=== PATIENT | male | born 1960 | race Caucasian/White ===

== ENCOUNTER 2018-08-04 13:58 | Inpatient (IN) | END 2018-08-11 18:55 | disposition home or self-care (01) | DRG 727 ==

== ENCOUNTER 2018-09-24 20:22 | Emergency (ER) | END 2018-09-25 00:24 | disposition home or self-care (01) ==

== ENCOUNTER 2018-12-29 12:41 | Emergency (ER) | payer OTHER ==
[~2018-12-29] VITALS: Ht 170.2 cm; Wt 80.0 kg
[~2018-12-29 12:41] MED LIST changes: -ACET-141 PO; -SOD CHLORIDE 0.9% 1,000 ML IV SCH; -TAMS0.4C2 PO
[2018-12-29 12:46] VITALS: Ht 170.2 cm; Wt 80.0 kg
--- NOTE | 2018-12-29 13:05 | ERD ---
ER Documentation Chief Complaint Chief Complaint SENT FROM SAME DAY SURGERY FOR EVAL OF HTN LOW HR. HPI 58-year-old man referred here from same day surgery for blood pressure control, he has a long history of hypertension and was due for a kidney biopsy today. He denies chest pain or shortness of breath, no headache or blurry vision, denies other symptoms. ROS All systems reviewed and are negative except as per history of present illness. Medications Home Meds Reported Medications Acetaminophen* (Acetaminophen*) 500 MG Extra Strength Tablet, 500 MG PO Q4H PRN for PAIN AND OR ELEVATED TEMP, TAB 12/29/18 Tamsulosin Hcl* (Tamsulosin Hcl*) 0.4 Mg Cap.er.24h, 0.4 MG PO DAILY, CAP 12/29/18 Metoprolol Tartrate* (Lopressor*) 50 Mg Tab, 50 MG PO TID, #60 TAB 12/29/18 Hydrochlorothiazide* (Hydrochlorothiazide*) 50 Mg Tab, 50 MG PO TID, #60 TAB 12/29/18 Lisinopril* (Lisinopril*) 5 Mg Tablet, 5 MG PO BID, #30 TAB 12/29/18 Discontinued Scripts Ibuprofen* (Motrin*) 600 Mg Tab, 600 MG PO Q6H PRN for PAIN AND OR ELEVATED TEMP, #30 TAB Prov:MISAEL WARD MD 09/25/18 Doxycycline* (Vibramycin*) 100 Mg Tab, 100 MG PO BID for 10 Days, #10 TAB Prov:ALE ROGERS MD 08/11/18 Allergies Allergies: Coded Allergies: No Known Allergy (Unverified , 12/29/18) PMhx/Soc History of epididymitis, chronic kidney disease, hypertension, alcoholism, obesity History of Surgery: Yes (RLE SX) Anesthesia Reaction: No Hx Neurological Disorder: No Hx Respiratory Disorders: No Hx Cardiac Disorders: Yes (HTN) Hx Psychiatric Problems: No Hx Miscellaneous Medical Probl: No Hx Alcohol Use: No Hx Substance Use: No Hx Tobacco Use: Yes FmHx Family History: No diabetes Physical Exam Vitals Vital Signs Date Temp Pulse Resp B/P (MAP) Pulse Ox O2 O2 Flow FiO2 Time Delivery Rate 12/29/18 64 20 183/81 99 Room Air 13:47 (115) 12/29/18 96.3 52 16 212/96 99 12:46 (134) Physical Exam Const: No acute distress Head: Atraumatic Eyes: Normal Conjunctiva ENT: Normal External Ears, Nose and Mouth. Neck: Full range of motion. No meningismus. Resp: Clear to auscultation bilaterally Cardio: Regular rate and rhythm, no murmurs Abd: Soft, non tender, non distended. Normal bowel sounds Skin: No petechiae or rashes Back: No midline or flank tenderness Ext: No cyanosis, or edema Neur: Awake and alert x3, no focal deficits or facial asymmetry Psych: Normal Mood and Affect Results 24 hrs Current Medications Medications Dose Sig/Ashley Start Time Status Last (Trade) Ordered Route PRN Stop Time Admin Dose Reason Admin Hydralazine 20 mg ONCE ONCE 12/29/18 DC 12/29/18 HCl IV 13:30 13:13 (Apresoline) 12/29/18 13:31 Procedures/MDM IV line was established patient was placed on cardiac cath lab manager rhythm strip revealed a sinus bradycardia at about 50 bpm with upright P and T waves. Patient was afebrile Patient was hypertensive and bradycardic here in the emergency department I administered hydralazine 20 mg IV x1. His systolic blood pressure fell over 30 points and pulse at this time is 66 bpm and normal. He remains asymptomatic and I have no indication for any further intervention, imaging, or admission. Patient will be discharged from the emergency department and will follow up with his PMD to reschedule kidney biopsy. Patient feels much better at this time, and vital signs are normal, symptoms have improved. I did give strict instructions to return to the ED if symptoms continue or worsen, patient will otherwise follow-up with primary care physician. Patient understood instructions and agreed to plan. Disclaimer: Inadvertent spelling and grammatical errors are likely due to EHR/dictation software use and do not reflect on the overall quality of patient care. Also, please note that the electronic time recorded on this note does not necessarily reflect the actual time of the patient encounter. Departure Diagnosis: Primary Impression: Hypertension Hypertension type: essential hypertension Qualified Codes: I10 - Essential (primary) hypertension Condition: ANAND Moreau MD Dec 29, 2018 13:05
[2018-12-29] MEDS ORDERED: TAMS0.4C2 PO (13:22)
[2018-12-29] MEDS ORDERED: ACET-141 PO (13:22)
[2018-12-29] MEDS ORDERED: hydrALAzine 20 MG INJ IV ONE (13:30)
[2018-12-29 13:47] VITALS: BP 183/81; PULSE 64; RESP 20
== END 2018-12-29 14:39 | disposition home or self-care (01) ==
LOC: E/R 12:41
DX: I12.9 Hypertensive chronic kidney disease with stage 1 through stage 4 chronic kidney disease, or unspecified chronic kidney disease (principal); R40.2142 Coma scale, eyes open, spontaneous, at arrival to emergency department; R40.2362 Coma scale, best motor response, obeys commands, at arrival to emergency department; R40.2252 Coma scale, best verbal response, oriented, at arrival to emergency department; N18.9 Chronic kidney disease, unspecified; E66.9 Obesity, unspecified; Z87.891 Personal history of nicotine dependence; Z68.27 Body mass index [BMI] 27.0-27.9, adult
CPT/HCPCS: 96374; J0360; Z7502; Z7610

== ENCOUNTER → 2018-12-29 | Day surgery (SDC) | payer OTHER ==
[~2018-12-29] VITALS: Ht 170.2 cm; Wt 96.6 kg
[~2018-12-29] MED LIST: ACET-141 PO; DOXY100T2 PO; HYDR50TA3 PO; IBUP-1542 PO; LISI-313 PO; METO-429 PO; SOD CHLORIDE 0.9% 1,000 ML IV SCH; TAMS0.4C2 PO
--- NOTE | 2018-12-29 07:51 | HPN ---
Date/Time of Note Date/Time of Note DATE: 12/29/18 TIME: 07:51 Interval H&P Admission Note Pt. seen H&P reviewed: No system changes MARTINEZ WILLIS MD Dec 29, 2018 07:51
[2018-12-29 07:58] VITALS: BP 199/93; PULSE 45; RESP 18
[2018-12-29 09:15] VITALS: BP 199/92; PULSE 48
[2018-12-29 09:21] VITALS: Ht 170.2 cm; Wt 96.6 kg
[2018-12-29 11:50] VITALS: BP 248/111; PULSE 50
== END | disposition home or self-care (01) ==
LOC: SDS 07:41
PROVIDERS: ATTEND Internal Medicine Nephrology
DX: I12.9 Hypertensive chronic kidney disease with stage 1 through stage 4 chronic kidney disease, or unspecified chronic kidney disease (principal); N18.9 Chronic kidney disease, unspecified; Z53.8 Procedure and treatment not carried out for other reasons

== ENCOUNTER 2019-01-09 10:58 | Inpatient (IN) | payer OTHER ==
[~2019-01-09] VITALS: Ht 170.2 cm; Wt 93.1 kg
[~2019-01-09 10:58] MED LIST changes: +ACET-141 PO; -DOXY100T2 PO; -IBUP-1542 PO; +TAMS0.4C2 PO
--- NOTE | 2019-01-09 11:12 | ERD ---
ER Documentation Chief Complaint Chief Complaint Sent from MD for adm for renal bx HPI The patient is a 58-year-old male, presenting to the ER because he needs admission for renal biopsy due to persistent proteinuria according to his rda Dr Huitron, who sent him to the ER. He complains of intermittent dizziness for the last 3 weeks, denies syncope, near syncope, neck pain, chest pain, dyspnea, abdominal pain, vomiting, dizzy, diarrhea. He smokes, denies drinking Past medical history: Hypertension, BPH, chronic kidney disease, chronic bilateral leg edema Past surgical history: None ROS All systems reviewed and are negative except as per history of present illness. Medications Home Meds Reported Medications Acetaminophen* (Acetaminophen*) 500 MG Extra Strength Tablet, 500 MG PO Q4H PRN for PAIN AND OR ELEVATED TEMP, TAB 12/29/18 Tamsulosin Hcl* (Tamsulosin Hcl*) 0.4 Mg Cap.er.24h, 0.4 MG PO DAILY, CAP 12/29/18 Metoprolol Tartrate* (Lopressor*) 50 Mg Tab, 50 MG PO TID, #60 TAB 12/29/18 Hydrochlorothiazide* (Hydrochlorothiazide*) 50 Mg Tab, 50 MG PO TID, #60 TAB 12/29/18 Lisinopril* (Lisinopril*) 5 Mg Tablet, 5 MG PO BID, #30 TAB 12/29/18 Allergies Allergies: Coded Allergies: No Known Allergy (Unverified , 01/09/19) PMhx/Soc History of Surgery: Yes (RLE SX) Anesthesia Reaction: No Hx Neurological Disorder: No Hx Respiratory Disorders: No Hx Cardiac Disorders: Yes (HTN) Hx Psychiatric Problems: No Hx Miscellaneous Medical Probl: No Hx Alcohol Use: No Hx Substance Use: No Hx Tobacco Use: Yes Physical Exam Vitals Vital Signs Date Temp Pulse Resp B/P (MAP) Pulse Ox O2 O2 Flow FiO2 Time Delivery Rate 01/09/19 98.0 70 20 190/88 98 Room Air 12:30 (122) 01/09/19 97.7 49 20 163/78 98 11:04 (106) Physical Exam Const: No acute distress. Head: Atraumatic. Eyes: Normal Conjunctiva. ENT: Normal External Ears, Nose and Mouth. Neck: Full range of motion. No meningismus. Resp: Clear to auscultation bilaterally. Cardio: Regular bradycardic Abd: Soft, non distended, normal bowel sounds, non tender. Skin: No petechiae or rashes. Back: No midline or flank tenderness. Ext: Mild bilateral leg edema, no calf tenderness Neur: Awake and alert. No focal deficit Psych: Normal Mood and Affect. Result Diagram: 01/09/19 1136 01/09/19 1136 Results 24 hrs Laboratory Tests Test 01/09/19 11:36 White Blood Count 7.9 10^3/ul Red Blood Count 4.30 10^6/ul Hemoglobin 12.7 g/dl Hematocrit 37.9 % Mean Corpuscular Volume 88.1 fl Mean Corpuscular Hemoglobin 29.5 pg Mean Corpuscular Hemoglobin Concent 33.5 g/dl Red Cell Distribution Width 13.0 % Platelet Count 258 10^3/UL Mean Platelet Volume 10.4 fl Immature Granulocytes % 0.500 % Neutrophils % 63.9 % Lymphocytes % 22.0 % Monocytes % 8.4 % Eosinophils % 4.7 % Basophils % 0.5 % Nucleated Red Blood Cells % 0.0 /100WBC Immature Granulocytes # 0.040 10^3/ul Neutrophils # 5.0 10^3/ul Lymphocytes # 1.7 10^3/ul Monocytes # 0.7 10^3/ul Eosinophils # 0.4 10^3/ul Basophils # 0.0 10^3/ul Nucleated Red Blood Cells # 0.0 10^3/ul Urine Color YELLOW Urine Clarity SLIGHTLY CLOUDY Urine pH 5.0 Urine Specific [place] 1.015 Urine Ketones NEGATIVE mg/dL Urine Nitrite NEGATIVE mg/dL Urine Bilirubin NEGATIVE mg/dL Urine Urobilinogen NEGATIVE mg/dL Urine Leukocyte Esterase NEGATIVE [place]/ul Urine Microscopic RBC 5 /HPF Urine Microscopic WBC 4 /HPF Urine Bacteria FEW /HPF Urine Hemoglobin NEGATIVE mg/dL Urine Glucose 1+ mg/dL Urine Total Protein 3+ mg/dl Sodium Level 140 mmol/L Potassium Level 4.6 mmol/L Chloride Level 104 mmol/L Carbon Dioxide Level 27 mmol/L Anion Gap 9 Blood Urea Nitrogen 40 mg/dl Creatinine 1.60 mg/dl Est Glomerular Filtrat Rate mL/min 45 mL/min Glucose Level 107 mg/dl Calcium Level 8.7 mg/dl Total Bilirubin 0.1 mg/dl Direct Bilirubin 0.00 mg/dl Indirect Bilirubin 0.1 mg/dl Aspartate Amino Transf (AST/SGOT) 21 IU/L Alanine Aminotransferase (ALT/SGPT) 11 IU/L Alkaline Phosphatase 85 IU/L Total Protein 7.4 g/dl Albumin 3.8 g/dl Globulin 3.60 g/dl Albumin/Globulin Ratio 1.05 Lipase 135 U/L Procedures/MDM MEDICAL MAKING DECISION: The patient is a 58-year-old male, presenting with acute extra hypertension, acute bradyarrhythmia, persistent proteinuria. He was treated with hydralazine 10 mg IV then later 20 mg IV with good blood pressure response The differential diagnoses considered include but are not limited to central causes such as hypertensive urgency, acute on chronic kidney disease, beta haydee toxicity, sick sinus syndrome, cerebellar infarct, cerebellar hemorrhage, cerebellar tumor, acoustic neuroma, peripheral causes such as benign positional vertigo, labyrinthitis, medication, Meniere's disease. Departure Diagnosis: Primary Impression: Hypertensive urgency Additional Impressions: Bradyarrhythmia Anemia Condition: Stable Comments I discussed the findings with the patient. I discussed the patient with the hospitalist Dr Menon at 12:35 pm . who was made aware of the lab, the treatment, the patient condition. The patient is admitted to Tel Disclaimer: Inadvertent spelling and grammatical errors are likely due to EHR/dictation software use and do not reflect on the overall quality of patient care. Also, please note that the electronic time recorded on this note does not necessarily reflect the actual time of the patient encounter. AMBERLY TRENT MD Jan 09, 2019 11:12
[2019-01-09] MEDS ORDERED: hydrALAzine 20 MG INJ IV ONE ×3 (14:30→15:30)
[2019-01-09] MEDS ORDERED: hydrALAzine 20 MG INJ IV PRN (15:00)
[2019-01-09] MEDS ORDERED: ACETAMINOPHEN 500 MG TAB PO PRN (15:00)
--- NOTE | 2019-01-09 16:08 | HP ---
DATE OF ADMISSION: 01/09/2019 INDICATION FOR ADMISSION: Outpatient referral for control of severely high blood pressure as well as a need for renal biopsy. HISTORY OF PRESENTING COMPLAINT: Mr. Henry is a 58-year-old male with a past medical history of hypertension, chronic kidney disease, whose last hospitalization here was back in August 2018 when he was admitted for management of acute orchitis with hydrocele. He was sent to the Emergency Room today by his competitive intelligence manager for admission for management of severely elevated blood pressures and for need for renal biopsy that has not been able to be done outpatient due to poor blood pressure control. The patient when he arrived in the Emergency Room, blood pressure is as high as 200/95 and his outpatient competitive intelligence manager has been adjusting his medication dosages without significant success in controlling it. He, however, denies headaches. Denies vision changes. Denies neck pain. Denies chest pain, no shortness of breath. Denies abdominal pain, nausea or vomiting. Denies hematochezia or melenic stools. Also does not have significant lower extremity swelling. The patient has chronic yellowing of his skin. He also has some periorbital edema, but he says it is all chronic for him. No other acute findings. PAST MEDICAL HISTORY: 1. High blood pressure. 2. Gout. 3. Chronic kidney disease. 4. Remote alcoholic. 5. Benign prostatic hypertrophy. PAST SURGICAL HISTORY: The patient has had hernia surgery. ALLERGIES: He has no known drug allergies. SOCIAL HISTORY: As mentioned earlier, the patient used to drink heavily, even though he did not consider himself an alcoholic, but he no longer drinks actively. He used to drink a lot of beer while he was working, he continues to smoke 1 cigarette a day and denies illicit drug use, denies marijuana use. FAMILY HISTORY: Noncontributory. REVIEW OF SYSTEMS: A 12-point review of system was done and pertinent findings as noted in HPI. HOME MEDICATIONS: At this time his home medications are not available. He says that we should call his daughter to obtain the list. PHYSICAL EXAMINATION: VITAL SIGNS: Temperature 98.0, pulse 51, respirations 18, blood pressure 200/95, saturations 99% on room air. GENERAL: Very pleasant male who was alert and oriented, cooperative with exam, in no distress. HEENT: Head is normocephalic, but he did have like mentioned earlier, periorbital edema bilaterally, but there was no scleral icterus. There was no conjunctival pallor. Mucous membranes are moist. Posterior pharynx was clear of erythema and exudates. NECK: Supple without adenopathy or JVD. CHEST: Clear to auscultation with good air entry on both sides. CARDIOVASCULAR: Heart sounds are S1 and S2 with no added sounds or murmurs. ABDOMEN: Protuberant but soft, nontender, nondistended. Normoactive bowel sounds. EXTREMITIES: His lower extremity, he does full swelling of the ankles, but does not seem edematous; however, skin was significantly yellowish concerning for possible hyperbilirubinemia. However, his bilirubin levels on the labs were normal. No ulcer, rash or concerning findings noted. LAB VALUES: His creatinine today actually is better than previously; it was 1.6 at the time of discharge last time he went down to 2.18. His liver profile is unremarkable. BUN is 40. Hematology, his hemoglobin 12.7 with normocytic normochromic indices. Urinalysis today continues to show 3+ protein, 1+ glucose and urine clarity was cloudy. IMAGING: Previous imaging reviewed including lower extremity Dopplers that showed no DVT and a renal ultrasound from 07/2018 that was unremarkable. ASSESSMENT: A 58-year-old male who was referred from his outpatient competitive intelligence manager for management of severely elevated blood pressure that is still out of patient's control and need for kidney biopsy that was unable to be done as an outpatient as well due to severely elevated blood pressure that was difficult to control. FINAL DIAGNOSES: 1. Accelerated hypertension. We will start the patient right now on a multidrug regimen and titrate as necessary to obtain optimal control. We will also try to retrieve home medication list from the patient's family. 2. Chronic kidney disease with proteinuria 3+, persistent. 3. Patient needs a renal biopsy when blood pressure is better controlled. 4. Continue to monitor renal function, renally dose all medications and avoid nephrotoxic drugs. 5. History of gout: Stable. 6. Ongoing tobacco use: Status post cessation counseling for at least 3 minutes. We will continue to reinforce. 7. History of benign prostatic hypertrophy. 8. Remote alcohol use. DISPOSITION: The patient will be admitted to telemetry floor and further intervention will depend on clinical course. For prophylaxis, he will be on SCDs. Dictated By: SLADE HARPER MD BA/NTS Conf#: [id number] [facility]#: [id number] MTDD
[2019-01-09 16:21] VITALS: BP 183/84; RESP 18
[2019-01-09 16:23] VITALS: Ht 170.2 cm; Wt 93.1 kg
[2019-01-09 16:25] VITALS: PULSE 74
[2019-01-09] MEDS: NIFEdipine (XL) 60 MG TAB PO SCH ×2 (17:14→22:00)
[2019-01-09 20:00] VITALS: BP 178/81; PULSE 71; PULSE 76; RESP 18
[2019-01-09] MEDS: DOCUSATE SODIUM 100 MG CAP PO SCH (22:00)
[2019-01-09] MEDS: TAMSULOSIN (SR) 0.4 MG CAP PO SCH (22:01)
[2019-01-09] MEDS: ACETAMINOPHEN 325 MG TAB PO PRN (22:01)
[2019-01-10] VITALS (12 sets, daily range): BP systolic 137–193; BP diastolic 70–105; PULSE 63–95; RESP 18–20
[2019-01-10] MEDS ORDERED: morphine 2 MG INJ IV STA (02:32)
[2019-01-10] MEDS: DOCUSATE SODIUM 100 MG CAP PO SCH ×2 (08:04→20:53)
[2019-01-10] MEDS: NIFEdipine (XL) 60 MG TAB PO SCH ×2 (08:04→20:54)
[2019-01-10] MEDS ORDERED: INFLUENZA VIRUS VACCINE 0.5 ML (DISPENSING) IM* ONE (09:00)
--- NOTE | 2019-01-10 11:12 | PN ---
Date/Time of Note Date/Time of Note DATE: 01/10/19 TIME: 11:09 Assessment/Plan VTE Prophylaxis Risk score (from Ns)>0 risk: 3 SCD applied (from Ns): No SCD contraindicated: low risk/ambulating Pharmacological prophylaxis: NA/contraindicated Pharm contraindication: low risk/ambulating Lines/Catheters IV [facility]from [facility] [place] [facility] Urinary Cath still in place: No Assessment/Plan Hospital Course S: no new complaints 0: GENERAL: Very pleasant male who was alert and oriented, cooperative with exam, in no distress. HEENT: Head is normocephalic, but he did have like mentioned earlier, periorbital edema bilaterally, but there was no scleral icterus. There was no conjunctival pallor. Mucous membranes are moist. Posterior pharynx was clear of erythema and exudates. NECK: Supple without adenopathy or JVD. CHEST: Clear to auscultation with good air entry on both sides. CARDIOVASCULAR: Heart sounds are S1 and S2 with no added sounds or murmurs. ABDOMEN: Protuberant but soft, nontender, nondistended. Normoactive bowel sounds. EXTREMITIES: His lower extremity, he does full swelling of the ankles, but does not seem edematous; however, skin was significantly yellowish concerning for possible hyperbilirubinemia. However, his bilirubin levels on the labs were normal. No ulcer, rash or concerning findings noted. assessment and plan: 1. Accelerated hypertension: failed outpatient mgt -improved on current regimen -plan for d/c later today if BP further improves, after dosage increase 2. Chronic kidney disease with proteinuria 3+, persistent. -creatinine levels continue to improve -Patient needs a renal biopsy when blood pressure is better controlled. outpatient ? -Continue to monitor renal function, renally dose all medications and avoid nephrotoxic drugs. 3. History of gout: Stable. 4. Ongoing tobacco use: Status post cessation counseling for at least 3 minutes. We will continue to reinforce. 5. History of benign prostatic hypertrophy. 6. Remote alcohol use. Dispo: possible d.c later today Result Diagram: 01/10/19 0504 01/10/19 0503 Results 24hrs Laboratory Tests Test 01/09/19 11:36 01/10/19 05:03 01/10/19 05:04 White Blood Count 7.9 7.7 Red Blood Count 4.30 L 4.23 L Hemoglobin 12.7 L 12.3 L Hematocrit 37.9 L 37.3 L Mean Corpuscular Volume 88.1 88.2 Mean Corpuscular Hemoglobin 29.5 29.1 Mean Corpuscular 33.5 33.0 Hemoglobin Concent Red Cell Distribution Width 13.0 13.2 Platelet Count 258 228 Mean Platelet Volume 10.4 10.5 H Immature Granulocytes % 0.500 H 0.500 H Neutrophils % 63.9 72.9 Lymphocytes % 22.0 16.3 Monocytes % 8.4 7.9 Eosinophils % 4.7 2.1 Basophils % 0.5 0.3 Nucleated Red Blood Cells % 0.0 0.0 Immature Granulocytes # 0.040 H 0.040 H Neutrophils # 5.0 5.6 Lymphocytes # 1.7 1.3 Monocytes # 0.7 0.6 Eosinophils # 0.4 0.2 Basophils # 0.0 0.0 Nucleated Red Blood Cells # 0.0 0.0 Urine Color YELLOW Urine Clarity SLIGHTLY CLOUDY A Urine pH 5.0 Urine Specific [place] 1.015 Urine Ketones NEGATIVE Urine Nitrite NEGATIVE Urine Bilirubin NEGATIVE Urine Urobilinogen NEGATIVE Urine Leukocyte Esterase NEGATIVE Urine Microscopic RBC 5 Urine Microscopic WBC 4 Urine Bacteria FEW A Urine Hemoglobin NEGATIVE Urine Glucose 1+ H Urine Total Protein 3+ H Sodium Level 140 142 Potassium Level 4.6 4.0 Chloride Level 104 108 Carbon Dioxide Level 27 26 Anion Gap 9 8 Blood Urea Nitrogen 40 H 35 H Creatinine 1.60 H 1.56 H Est Glomerular Filtrat 45 L 46 L Rate mL/min Glucose Level 107 106 Calcium Level 8.7 8.8 Total Bilirubin 0.1 L Direct Bilirubin 0.00 Indirect Bilirubin 0.1 Aspartate Amino 21 Transf (AST/SGOT) Alanine 11 L Aminotransferase (ALT/SGPT) Alkaline Phosphatase 85 Total Protein 7.4 Albumin 3.8 Globulin 3.60 H Albumin/Globulin Ratio 1.05 Lipase 135 Phosphorus Level 3.8 Magnesium Level 2.1 Uric Acid 8.2 H Exam/Review of Systems Exam Vitals Vital Signs Date Temp Pulse Resp B/P (MAP) Pulse Ox O2 O2 Flow FiO2 Time Delivery Rate 01/10/19 92 08:01 01/10/19 98.4 20 161/105 98 07:43 (123) 01/09/19 Room Air 16:21 Intake and Output 01/09/19 01/09/19 01/10/19 1414:59 22:59 06:59 IntakeIntake Total 360 ml 250 ml OutputOutput Total 300 ml 1200 ml BalanceBalance 60 ml -950 ml Results Results 24hrs Laboratory Tests Test 01/09/19 11:36 01/10/19 05:03 01/10/19 05:04 White Blood Count 7.9 7.7 Red Blood Count 4.30 L 4.23 L Hemoglobin 12.7 L 12.3 L Hematocrit 37.9 L 37.3 L Mean Corpuscular Volume 88.1 88.2 Mean Corpuscular Hemoglobin 29.5 29.1 Mean Corpuscular 33.5 33.0 Hemoglobin Concent Red Cell Distribution Width 13.0 13.2 Platelet Count 258 228 Mean Platelet Volume 10.4 10.5 H Immature Granulocytes % 0.500 H 0.500 H Neutrophils % 63.9 72.9 Lymphocytes % 22.0 16.3 Monocytes % 8.4 7.9 Eosinophils % 4.7 2.1 Basophils % 0.5 0.3 Nucleated Red Blood Cells % 0.0 0.0 Immature Granulocytes # 0.040 H 0.040 H Neutrophils # 5.0 5.6 Lymphocytes # 1.7 1.3 Monocytes # 0.7 0.6 Eosinophils # 0.4 0.2 Basophils # 0.0 0.0 Nucleated Red Blood Cells # 0.0 0.0 Urine Color YELLOW Urine Clarity SLIGHTLY CLOUDY A Urine pH 5.0 Urine Specific [place] 1.015 Urine Ketones NEGATIVE Urine Nitrite NEGATIVE Urine Bilirubin NEGATIVE Urine Urobilinogen NEGATIVE Urine Leukocyte Esterase NEGATIVE Urine Microscopic RBC 5 Urine Microscopic WBC 4 Urine Bacteria FEW A Urine Hemoglobin NEGATIVE Urine Glucose 1+ H Urine Total Protein 3+ H Sodium Level 140 142 Potassium Level 4.6 4.0 Chloride Level 104 108 Carbon Dioxide Level 27 26 Anion Gap 9 8 Blood Urea Nitrogen 40 H 35 H Creatinine 1.60 H 1.56 H Est Glomerular Filtrat 45 L 46 L Rate mL/min Glucose Level 107 106 Calcium Level 8.7 8.8 Total Bilirubin 0.1 L Direct Bilirubin 0.00 Indirect Bilirubin 0.1 Aspartate Amino 21 Transf (AST/SGOT) Alanine 11 L Aminotransferase (ALT/SGPT) Alkaline Phosphatase 85 Total Protein 7.4 Albumin 3.8 Globulin 3.60 H Albumin/Globulin Ratio 1.05 Lipase 135 Phosphorus Level 3.8 Magnesium Level 2.1 Uric Acid 8.2 H Medications Medication Current Medications Hydralazine HCl (Apresoline) 10 mg Q6H PRN IV sbp>160mmhg Last administered on 01/10/19 00:51; Admin Dose 10 MG; Start 01/09/19 at 15:00 Tamsulosin HCl (Flomax) 0.4 mg QHS PO Last administered on 01/09/19 22:01; Admi n Dose 0.4 MG; Start 01/09/19 at 21:00 Nifedipine (Procardia Xl) 60 mg BID PO Last administered on 01/10/19 08:04; Admin Dose 60 MG; Start 01/09/19 at 15:00 Carvedilol (Coreg) 6.25 mg BID PO Last administered on 01/10/19 08:04; Admin Dose 6.25 MG; Start 01/09/19 at 15:00 Hydralazine HCl (Apresoline) 25 mg TID PO Last administered on 01/10/19 08:05; Admin Dose 25 MG; Start 01/09/19 at 21:00 Acetaminophen (Tylenol Tab) 650 mg Q6H PRN PO MILD PAIN(1-3)OR ELEVATED TEMP Last administered on 01/09/19 22:01; Admin Dose 650 MG; Start 01/09/19 at 15:30 Docusate Sodium (Colace) 100 mg BID PO Last administered on 01/10/19 08:04; Admin Dose 100 MG; Start 01/09/19 at 21:00 SLADE HARPER Jan 10, 2019 11:12
--- NOTE | 2019-01-10 15:07 | QN ---
Documentation Comment seen and examined renal biopsy in am HARMONY REYES MD Jan 10, 2019 15:07
--- NOTE | 2019-01-10 16:09 | CONS ---
DATE OF ADMISSION: 01/09/2019 DATE OF CONSULTATION: TYPE OF CONSULTATION: Renal. REASON FOR CONSULTATION: Renal biopsy. HISTORY OF PRESENTING ILLNESS: This is a 58-year-old male with a past medical history of hypertensio n, CKD stage III, history of acute orchitis, hydrocele, who had been seeing me as an outpatient for h ypertension control and also for proteinuria. The patient had been seen in the clinic and was noted to have a persistent swelling of the left leg. The patient had UA that had shown 3+ proteinuria, UPC of greater than 3 grams. The paraprotein workup had been negative so far. The patient was schedule d to come for a renal biopsy which he came last week; however blood pressures systolic over 200 and w as seen in my clinic again and was sent in a referral for inpatient renal biopsy. The patient was ad mitted yesterday and currently blood pressure had been controlled. The swelling of the left lower ex tremity has improved. He also has some periorbital edema. PAST MEDICAL HISTORY: 1. Hypertension. 2. Gout. 3. CKD stage III. 4. History of alcohol. 5. BPH. 6. History of hematuria. ALLERGIES: NO KNOWN DRUG ALLERGIES. SOCIAL HISTORY: Used to drink heavily, even though did not consider as an alcoholic. He used to smo ke 1 cigarette per day. Denies any illicit drug use. FAMILY HISTORY: Noncontributory. REVIEW OF SYSTEMS: The patient denies any headache, any blurry vision, any chest pain, any shortness of breath. The patient was having lower extremity edema which was improved. Denies any hematemesis , any melena or any bright blood per rectum. PHYSICAL EXAMINATION: VITAL SIGNS: Temperature 98.0, pulse 81, respirations 18, initial blood pressure was 200/95; current ly blood pressure is 137/71. GENERAL: The patient is awake, alert, oriented, does not appear to be in any acute distress. NECK: Supple. No JVD. HEART: Regular rate and rhythm. LUNGS: Clear to auscultation bilaterally. ABDOMEN: Soft, nontender, nondistended, positive normoactive bowel sounds. EXTREMITIES: Swelling of the ankles. LABORATORY DATA: Sodium 142, potassium 4.0, chloride 108, bicarb 26. White count of 7.7, hemoglobin 12.3, platelet count 228. Coags are pending. MICROBIOLOGY: UA still shows 3+ proteinuria. ASSESSMENT AND PLAN: A 58-year-old male admitted for: 1. Proteinuria, UPC greater than 3 grams, questionable focal segmental glomerulosclerosis/minimal ch jennifer disease/membranous. SPEP, UPEP had been negative as an outpatient. The patient also had uncont rolled hypertension that could have also caused proteinuria. 2. Chronic kidney disease stage III, fairly controlled. 3. Hypertension, uncontrolled. 4. Gout. 5. Vitamin D deficiency. 6. History of alcohol use. 7. History of benign prostatic hypertrophy. PLAN: At this period of time, the patient is admitted to [facility]. The patient is started on hydralazin e 50 t.i.d., nifedipine 60 b.i.d., Coreg 6.25 b.i.d. We will order coags. The patient will be alden nued on rest of the home medications. The patient will likely receive kidney biopsy in-house. I theo ponce to Dr. Ly. Dictated By: HARMONY MARTIN/VIKKI Conf#: [id number] DID#: [id number] CC: SLADE HARPER MD;*EndCC*
[2019-01-10] MEDS: ACETAMINOPHEN 325 MG TAB PO PRN (20:53)
[2019-01-10] MEDS: TAMSULOSIN (SR) 0.4 MG CAP PO SCH (20:55)
[2019-01-11] VITALS (14 sets, daily range): BP systolic 135–159; BP diastolic 72–78; PULSE 56–78; RESP 17–24
--- NOTE | 2019-01-11 06:51 | PN ---
Date/Time of Note Date/Time of Note DATE: 01/11/19 TIME: 06:49 Assessment/Plan VTE Prophylaxis Risk score (from Nsg)>0 risk: 4 Pharmacological prophylaxis: heparin Lines/Catheters IV Catheter Type (from Nrs): Saline Lock Urinary Cath still in place: No Assessment/Plan Hospital Course S: no new complaints, NPO for biopsy today 0: GENERAL: Very pleasant male who was alert and oriented, cooperative with exam, in no distress. HEENT: Head is normocephalic, but he did have like mentioned earlier, periorbital edema bilaterally, but there was no scleral icterus. There was no conjunctival pallor. Mucous membranes are moist. Posterior pharynx was clear of erythema and exudates. NECK: Supple without adenopathy or JVD. CHEST: Clear to auscultation with good air entry on both sides. CARDIOVASCULAR: Heart sounds are S1 and S2 with no added sounds or murmurs. ABDOMEN: Protuberant but soft, nontender, nondistended. Normoactive bowel sounds. EXTREMITIES: His lower extremity, he does full swelling of the ankles, but does not seem edematous; however, skin was significantly yellowish concerning for possible hyperbilirubinemia. However, his bilirubin levels on the labs were normal. No ulcer, rash or concerning findings noted. assessment and plan: 1. Accelerated hypertension: failed outpatient mgt -improved on current regimen -has room for further improvement, however in view of #3, patient will benefit from ACEi or ARB but will defer to renal as to when to start this -will give one dose of clonidine now to improve levels 2. Chronic kidney disease with proteinuria 3+, persistent. -creatinine levels continue to improve -Patient needs a renal biopsy, to be done later today -Continue to monitor renal function, renally dose all medications and avoid nephrotoxic drugs. 3. History of gout: Stable. 4. Ongoing tobacco use: Status post cessation counseling for at least 3 minutes. We will continue to reinforce. 5. History of benign prostatic hypertrophy. 6. Remote alcohol use. Dispo: renal biopsy, add acei or arb, then d/c ? Result Diagram: 01/10/19 0504 01/10/19 0503 Results 24hrs Laboratory Tests Test 01/10/19 13:53 01/11/19 05:42 Prothrombin Time 13.4 Prothrombin Time Ratio 1.0 INR International Normalized Ratio 1.01 Activated Partial Thromboplast Time 32.9 White Blood Count Pending Red Blood Count Pending Hemoglobin Pending Hematocrit Pending Mean Corpuscular Volume Pending Mean Corpuscular Hemoglobin Pending Mean Corpuscular Hemoglobin Concent Pending Red Cell Distribution Width Pending Platelet Count Pending Mean Platelet Volume Pending Exam/Review of Systems Exam Vitals Vital Signs Date Temp Pulse Resp B/P (MAP) Pulse Ox O2 O2 Flow FiO2 Time Delivery Rate 01/11/19 97.8 62 17 154/73 93 04:07 (100) 01/09/19 Room Air 16:21 Intake and Output 01/10/19 01/10/19 01/11/19 1515:00 23:00 07:00 IntakeIntake Total 800 ml 300 ml OutputOutput Total 650 ml 850 ml BalanceBalance 150 ml -550 ml Results Results 24hrs Laboratory Tests Test 01/10/19 13:53 01/11/19 05:42 Prothrombin Time 13.4 Prothrombin Time Ratio 1.0 INR International Normalized Ratio 1.01 Activated Partial Thromboplast Time 32.9 White Blood Count Pending Red Blood Count Pending Hemoglobin Pending Hematocrit Pending Mean Corpuscular Volume Pending Mean Corpuscular Hemoglobin Pending Mean Corpuscular Hemoglobin Concent Pending Red Cell Distribution Width Pending Platelet Count Pending Mean Platelet Volume Pending Medications Medication Current Medications Hydralazine HCl (Apresoline) 10 mg Q6H PRN IV sbp>160mmhg Last administered on 01/10/19 00:51; Admin Dose 10 MG; Start 01/09/19 at 15:00 Tamsulosin HCl (Flomax) 0.4 mg QHS PO Last administered on 01/10/19 20:55; Admin Dose 0.4 MG; Start 01/09/19 at 21:00 Nifedipine (Procardia Xl) 60 mg BID PO Last administered on 01/10/19 20:54; Admin Dose 60 MG; Start 01/09/19 at 15:00 Carvedilol (Coreg) 6.25 mg BID PO Last administered on 01/10/19 20:54; Admin Dose 6.25 MG; Start 01/09/19 at 15:00 Acetaminophen (Tylenol Tab) 650 mg Q6H PRN PO MILD PAIN(1-3)OR ELEVATED TEMP Last administered on 01/10/19 20:53; Admin Dose 650 MG; Start 01/09/19 at 15:30 Docusate Sodium (Colace) 100 mg BID PO Last administered on 01/10/19 20:53; Admin Dose 100 MG; Start 01/09/19 at 21:00 Hydralazine HCl (Apresoline) 50 mg TID PO Last administered on 01/10/19 20:55; Admin Dose 50 MG; Start 01/10/19 at 13:00 SLADE HARPER Jan 11, 2019 06:51
[2019-01-11] MEDS: DOCUSATE SODIUM 100 MG CAP PO SCH (08:14)
[2019-01-11] MEDS: NIFEdipine (XL) 60 MG TAB PO SCH (08:14)
--- NOTE | 2019-01-11 10:51 | PREAC ---
Date/Time of Note Date/Time of Note DATE: 01/11/19 TIME: 10:49 Anesthesia Eval and Record Evaluation Time Pre-Procedure Interview DATE: 01/11/19 TIME: 10:49 Age 58 Sex male NPO: 8 hrs Preoperative diagnosis HTN Planned procedure Renal Biopsy Past Medical History Past Medical History: Includes Cardio: HTN Renal: CKD Hepatic: Alcohol abuse Surgery & Anesthesia Issues No known issue Meds Anticoagulation: No Beta Angela within 24 hr: Yes Reason Beta Angela not given: Pt. not on B-Angela Reported Medications Acetaminophen* (Acetaminophen*) 500 MG Extra Strength Tablet, 500 MG PO Q4H PRN for PAIN AND OR ELEVATED TEMP, TAB 12/29/18 Tamsulosin Hcl* (Tamsulosin Hcl*) 0.4 Mg Cap.er.24h, 0.4 MG PO DAILY, CAP 12/29/18 Metoprolol Tartrate* (Lopressor*) 50 Mg Tab, 50 MG PO TID, #60 TAB 12/29/18 Hydrochlorothiazide* (Hydrochlorothiazide*) 50 Mg Tab, 50 MG PO TID, #60 TAB 12/29/18 Lisinopril* (Lisinopril*) 5 Mg Tablet, 5 MG PO BID, #30 TAB 12/29/18 Current Medications Hydralazine HCl (Apresoline) 10 mg Q6H PRN IV sbp>160mmhg Last administered on 01/10/19at 00:51; Admin Dose 10 MG; Start 01/09/19 at 15:00 Tamsulosin HCl (Flomax) 0.4 mg QHS PO Last administered on 01/10/19at 20:55; Admi n Dose 0.4 MG; Start 01/09/19 at 21:00 Nifedipine (Procardia Xl) 60 mg BID PO Last administered on 01/11/19at 08:14; Admin Dose 60 MG; Start 01/09/19 at 15:00 Carvedilol (Coreg) 6.25 mg BID PO Last administered on 01/11/19at 08:13; Admin Dose 6.25 MG; Start 01/09/19 at 15:00 Acetaminophen (Tylenol Tab) 650 mg Q6H PRN PO MILD PAIN(1-3)OR ELEVATED TEMP Last administered on 01/10/19at 20:53; Admin Dose 650 MG; Start 01/09/19 at 15:30 Docusate Sodium (Colace) 100 mg BID PO Last administered on 01/11/19at 08:14; Admin Dose 100 MG; Start 01/09/19 at 21:00 Hydralazine HCl (Apresoline) 50 mg TID PO Last administered on 01/11/19at 08:13; Admin Dose 50 MG; Start 01/10/19 at 13:00 Meds reviewed: Yes Allergies Coded Allergies: No Known Allergy (Unverified , 01/09/19) Allergies Reviewed: Yes Labs/Studies Labs Reviewed: Reviewed by anesthesiologist Result Diagram: 01/11/19 0542 01/11/19 0542 Laboratory Tests 01/11/19 05:42 test: N/A Pre-procedure Exam Last vitals Vital Signs Date Temp Pulse Resp B/P (MAP) Pulse Ox O2 O2 Flow FiO2 Time Delivery Rate 01/11/19 64 08:00 01/11/19 98.3 19 145/72 95 07:46 (96) 01/09/19 Room Air 16:21 Airway: Adequate mouth opening, Adequate thyromental dist Mallampati: Mallampati III Teeth: Normal Lung: Normal Heart: Normal ASA Physical Status ASA physical status: 3 Emergency: None Pre-operative Attestations Prior to commencing anesthesia and surgery, the patient was re-evaluated, there was verification of: *The patient's identity *The results of appropriate recent lab work and preoperative vital signs *The above evaluation not changing prior to induction *Anesthetic plan, risk benefits, alternative and complications discussed with patient/family; questions answered; patient/family understands, accepts and wishes to proceed. JADEN CHERY DO Jan 11, 2019 10:51
[2019-01-11] MEDS ORDERED: PROPOFOL 20 ML ONE (10:53)
[2019-01-11] MEDS ORDERED: NALOXONE (0.4 MG/ML) INJ ONE (10:53)
[2019-01-11] MEDS ORDERED: MIDAZOLAM 1 MG/ML 2 ML INJ ONE (10:53)
[2019-01-11] MEDS ORDERED: FENTAnyl 50 MCG/ML VIAL ONE ×2 (10:53)
[2019-01-11] MEDS ORDERED: GELATIN 12MM X 7 MM SPONGE ONE (10:58)
[2019-01-11] MEDS ORDERED: LIDOCAINE 1% (MDV) 20 ML INJ ONE (10:58)
--- NOTE | 2019-01-11 12:10 | HPN ---
Date/Time of Note Date/Time of Note DATE: 01/11/19 TIME: 12:10 Interval H&P Admission Note Pt. seen H&P reviewed: No system changes MARTINEZ WILLIS MD Jan 11, 2019 12:10
--- NOTE | 2019-01-11 12:15 | PAC ---
Date/Time of Note Date/Time of Note DATE: 01/11/19 TIME: 12:14 Post-Anesthesia Notes Post-Anesthesia Note Last documented vital signs Vital Signs Date Temp Pulse Resp B/P (MAP) Pulse Ox O2 O2 Flow FiO2 Time Delivery Rate 98 70 18 139/63 98 01/11/19 98.3 19 145/72 95 07:46 (96) 01/09/19 Room Air 16:21 Activity: WNL Respiratory function: WNL Cardiovascular function: WNL Mental status: Baseline Pain reasonably controlled: Yes Hydration appropriate: Yes Nausea/Vomiting absent: Yes JADEN CHERY DO Jan 11, 2019 12:15
--- NOTE | 2019-01-11 12:16 | CONS ---
Assessment/Plan Assessment/Plan Assessment/Plan (Daily) A 58-year-old male admitted for: 1. Proteinuria, UPC greater than 3 grams, questionable focal segmental glomerulosclerosis/minimal change disease/membranous. SPEP, UPEP had been negative as an outpatient. The patient also had uncontrolled hypertension that could have also caused proteinuria. 2. Chronic kidney disease stage III, fairly controlled. 3. Hypertension, uncontrolled. 4. Gout. 5. Vitamin D deficiency. 6. History of alcohol use. 7. History of benign prostatic hypertrophy. Plan -Renal biopsy today. -Bp controlled on current medications - pt should can be discharged today after observation after renal biopsy today on the same blood pressure medications will follow up in 1-2 weeks for biopsy results Consultation Date/Type/Reason Admit Date/Time Jan 09, 2019 at 12:43 Initial Consult Date Date/Time of Note DATE: 01/11/19 TIME: 12:14 24 HR Interval Summary Free Text/Dictation Pt went for renal biopsy BP CONTROLLED Exam/Review of Systems Exam Vitals Vital Signs Date Temp Pulse Resp B/P (MAP) Pulse Ox O2 O2 Flow FiO2 Time Delivery Rate 01/11/19 64 08:00 01/11/19 98.3 19 145/72 95 07:46 (96) 01/09/19 Room Air 16:21 Intake and Output 01/10/19 01/10/19 01/11/19 1515:00 23:00 07:00 IntakeIntake Total 800 ml 300 ml OutputOutput Total 650 ml 850 ml BalanceBalance 150 ml -550 ml Exam GENERAL: The patient is awake, alert, oriented, does not appear to be in any acute distress. NECK: Supple. No JVD. HEART: Regular rate and rhythm. LUNGS: Clear to auscultation bilaterally. ABDOMEN: Soft, nontender, nondistended, positive normoactive bowel sounds. EXTREMITIES: Swelling of the Left ankles. Results Result Diagram: 01/11/19 0542 01/11/19 0542 Results 24hrs Laboratory Tests Test 01/10/19 13:53 01/11/19 05:42 Prothrombin Time 13.4 Prothrombin Time Ratio 1.0 INR International Normalized Ratio 1.01 Activated Partial Thromboplast Time 32.9 White Blood Count 5.8 # Red Blood Count 4.24 L Hemoglobin 12.3 L Hematocrit 37.0 L Mean Corpuscular Volume 87.3 Mean Corpuscular Hemoglobin 29.0 Mean Corpuscular Hemoglobin Concent 33.2 Red Cell Distribution Width 13.1 Platelet Count 204 Mean Platelet Volume 10.6 H Immature Granulocytes % 0.300 Neutrophils % 67.5 Lymphocytes % 18.2 Monocytes % 8.9 Eosinophils % 4.8 Basophils % 0.3 Nucleated Red Blood Cells % 0.0 Immature Granulocytes # 0.020 Neutrophils # 3.9 Lymphocytes # 1.1 Monocytes # 0.5 Eosinophils # 0.3 Basophils # 0.0 Nucleated Red Blood Cells # 0.0 Sodium Level 142 Potassium Level 3.9 Chloride Level 108 Carbon Dioxide Level 26 Anion Gap 8 Blood Urea Nitrogen 36 H Creatinine 1.59 H Est Glomerular Filtrat Rate mL/min 45 L Glucose Level 98 Calcium Level 8.8 Medications Medication Current Medications Hydralazine HCl (Apresoline) 10 mg Q6H PRN IV sbp>160mmhg Last administered on 01/10/19 00:51; Admin Dose 10 MG; Start 01/09/19 at 15:00 Tamsulosin HCl (Flomax) 0.4 mg QHS PO Last administered on 01/10/19 20:55; Admin Dose 0.4 MG; Start 01/09/19 at 21:00 Nifedipine (Procardia Xl) 60 mg BID PO Last administered on 01/11/19 08:14; Admin Dose 60 MG; Start 01/09/19 at 15:00 Carvedilol (Coreg) 6.25 mg BID PO Last administered on 01/11/19 08:13; Admin Dose 6.25 MG; Start 01/09/19 at 15:00 Acetaminophen (Tylenol Tab) 650 mg Q6H PRN PO MILD PAIN(1-3)OR ELEVATED TEMP L ast administered on 01/10/19 20:53; Admin Dose 650 MG; Start 01/09/19 at 15:30 Docusate Sodium (Colace) 100 mg BID PO Last administered on 01/11/19 08:14; Admin Dose 100 MG; Start 01/09/19 at 21:00 Hydralazine HCl (Apresoline) 50 mg TID PO Last administered on 01/11/19 08:13; Admin Dose 50 MG; Start 01/10/19 at 13:00 HARMONY REYES MD Jan 11, 2019 12:16
--- NOTE | 2019-01-11 12:32 | RADRPT ---
Echocardiogram Report Patient Name: MIK GREENPatient ID: [id number] : 1960 (58y 12m)Study Date: 01/10/2019 8:48:43 AM Gender: MAccession #: [id number] Tech: JulianHiral Rebolledo RUST Location[facility] Ref.Physician: SLADE HARPER Height(Cm): BSA: Weight(Kg): Quality: AdequateAccount #: Procedures: Echocardiographic Report: Transthoracic echocardiogram with complete 2D, M-Mode, and doppler examination. Indications: Accelerated Hypertension. Measurements: 2D/M Mode Doppler Measurement Value Normal Range Measurement Value Normal Range LVIDd 2D 4.9 [ 4.2 - 5.8 ] cm AV Peak Denis 2.0 [ 100.0 - 170.0 ] cm/sec LVIDs 2D 2.8 [ 2.5 - 4.0 ] cm AV Peak PG 16.0 [ 2.0 - 9.0 ] mmHg LVPWd 2D 1.3 [ 0.6 - 1.0 ] cm LVOT Peak Denis 1.4 [ 70.0 - 110.0 ] cm/sec IVSd 2D 1.4 [ 0.6 - 1.0 ] cm LVOT Peak PG 8.0 [ 2.0 - 6.0 ] mmHg AoR Diam 2D 3.0 [ 2.6 - 3.4 ] cm MV E Peak Denis 0.8 [ 60.0 - 130.0 ] cm/sec EDV 2D 116.0 [ 62.0 - 150.0 ] ml MV A Peak Denis 1.0 [ 100.0 - 120.0 ] cm/sec ESV 2D 28.8 [ 21.0 - 61.0 ] ml MV E/A 0.8 [ 0.8 - 1.5 ] ratio EF 2D 75.2 [ 52.0 - 72.0 ] percent MV Decel Time 289 [ 104 - 258 ] msec LA Dimen 2D 3.9 [ 3.0 - 4.0 ] cm Lat E` Denis 0.1 [ 10.0 - 15.0 ] cm/sec Lateral E/E` 10.3 [ 1.0 - 2.0 ] ratio MV E/A 0.8 [ 0.8 - 1.5 ] ratio Findings: Left Ventricle: Normal left ventricular systolic function. Normal left ventricular cavity size. Normal left ventricular wall thickness. Mild concentric left ventricular hypertrophy. Ejection fraction is visually estimated at 65 %. Tissue Doppler/Mitral Doppler indices are consistent with impaired relaxation (Stage I diastolic dysfunction). Right Ventricle: Normal right ventricular size. Normal right ventricular systolic function. Left Atrium: The left atrium is normal in size. Right Atrium: The right atrium is normal in size. Mitral Valve: Normal appearance and function of the mitral valve with trace physiologic regurgitation. Aortic Valve: No significant aortic stenosis or insufficiency. Aortic cusps appear mildly calcified. Tricuspid Valve: Normal appearance of the tricuspid valve. Unable to obtain RVSP due to minimal presence of tricuspid regurgitation. Pulmonic Valve: Pulmonic valve not well visualized. Pericardium: Normal pericardium with no significant pericardial effusion. Aorta: Normal aortic root. IVC: Normal size and normal respiratory collapse consistent with normal right atrial pressure. Conclusions: Normal left ventricular systolic function. Normal left ventricular cavity size. Normal left ventricular wall thickness. Mild concentric left ventricular hypertrophy. Ejection fraction is visually estimated at 65 %. Tissue Doppler/Mitral Doppler indices are consistent with impaired relaxation (Stage I diastolic dysfunction). Normal appearance of the tricuspid valve. Unable to obtain RVSP due to minimal presence of tricuspid regurgitation. No significant aortic stenosis or insufficiency. Aortic cusps appear mildly calcified. Normal appearance and function of the mitral valve with trace physiologic regurgitation. Electronically Signed By: Tong Hi 2019-01-11 12:31:54 PST
[2019-01-11] MEDS ORDERED: CARV6.2579 PO (14:53)
[2019-01-11] MEDS ORDERED: NIFE60TA2 PO (14:53)
[2019-01-11] MEDS ORDERED: HYDR-3672 PO (14:53)
--- NOTE | 2019-01-11 15:00 | PDOCDIS ---
Discharge Instructions CONDITION [id number] Patient Condition: [id number] Stable HOME CARE INSTRUCTIONS: [id number] Diet Instructions: [id number] Low Fat /Cholesterol ACTIVITY: [id number] Activity Restrictions: [id number] Slowly Increase Activity Rest between Activity FOLLOW UP/APPOINTMENTS Follow-up Plan followup with your Primary care doctor and your Strip Tank Tender Dr Madonna Huitron. I have made changes to your medications, please review them with your nurse before you leave. . SLADE HARPER Jan 11, 2019 15:00
== END 2019-01-11 17:50 | disposition still patient (30) | DRG 305 ==
LOC: E/R 10:58 → 6WM 12:43
PROVIDERS: ADMIT Family Medicine; ATTEND Family Medicine
PROC: 0TB03ZX Excision of Right Kidney, Percutaneous Approach, Diagnostic (ICD-10-PCS; principal; 2019-01-11)
DX: I16.0 Hypertensive urgency (principal); I12.9 Hypertensive chronic kidney disease with stage 1 through stage 4 chronic kidney disease, or unspecified chronic kidney disease; M10.9 Gout, unspecified; N40.0 Benign prostatic hyperplasia without lower urinary tract symptoms; F17.210 Nicotine dependence, cigarettes, uncomplicated; E55.9 Vitamin D deficiency, unspecified; N18.3 Chronic kidney disease, stage 3 (moderate)
CPT/HCPCS: 36415; 77012; 80048; 80053; 81001; 83690; 83735; 84100; 84560; 85025; 85610; 85730; 90686; 93306; J0360; J2250; J2310; J3010